=== PATIENT | male | born 1970 | race Caucasian/White ===

== ENCOUNTER → 2017-06-17 | Day surgery (SDC) | payer BC ==
[2017-05-15 13:39] VITALS: BP 143/74
[~2017-06-17] MED LIST: ADVIL 200MG TA200 MG PO; ASPIRIN 32325 MG/TAB PO; CLARITIN10 M1 PO; COUMADIN 77.5 MG/TAB PO; GLUCOSAMINE & C1 CA2 PO; HYDROCHLOROTHIA1 T14 PO; NATURE'S BLEND1 TA6 PO; NIFEDIPINE ER60 M2 PO; PREDNISONE10 MG PO; TOPROL XL100 MG PO; ZANTAC150 M1 PO
== END ==
LOC: MSO 08:25
DX: D64.9 Anemia, unspecified (principal); K63.5 Polyp of colon; I10 Essential (primary) hypertension; G47.33 Obstructive sleep apnea (adult) (pediatric); E66.01 Morbid (severe) obesity due to excess calories; I48.0 Paroxysmal atrial fibrillation; Z79.01 Long term (current) use of anticoagulants; Z68.44 Body mass index [BMI] 60.0-69.9, adult
CPT/HCPCS: 00810; J7120

== ENCOUNTER 2017-11-07 08:39 | Emergency (ER) | payer BC ==
[~2017-11-07] VITALS: Ht 185.4 cm; Wt 222.7 kg
[~2017-11-07 08:39] MED LIST changes: -HYDROCHLOROTHIA1 T14 PO; +HYDROCHLOROTHIA1 T15 PO; +NIFEDIPINE ER30 M3 PO; -NIFEDIPINE ER60 M2 PO
[2017-11-07] MEDS ORDERED: CLARITIN 1010 MG/TAB PO (09:02)
[2017-11-07] MEDS ORDERED: ADVIL 200MG TA200 MG PO (09:02)
[2017-11-07] MEDS ORDERED: [UNRECOGNIZED DRUG - OTHER] PO (09:03)
[2017-11-07 10:07] LABS: EOS # 0.2 (0.04-0.40); EOS % 2.3 % (0.0-4.0); HEMATOCRIT 42.2 % (42.0-52.0); HEMOGLOBIN 13.1 g/dL (13.5-18.0); LYMPH# 2.1 (1.50-4.00); MEAN CELL VOLUME 84 fl (78-100); MEAN CORPUSCULAR HEMOGLOBIN 26 pg (27-31); MEAN CORPUSCULAR HGB CONC 31 g/dL (33-37); MEAN PLATELET VOLUME 9.8 fl (7.4-10.4); MONO # 0.6 (0.20-0.80); NEU # 4.9 (1.40-6.50); PLATELET COUNT 267 K/mm3 (130-400); RED BLOOD COUNT 5.05 M/mm3 (4.20-5.60); RED CELL DISTRIBUTION WIDTH 14.4 % (11.5-14.5); WHITE BLOOD COUNT 7.8 K/mm3 (4.8-10.8)
[2017-11-07 10:25] LABS: PROTHROMBIN TIME 25.1 SECONDS (9.0-12.0)
[2017-11-07 10:33] LABS: ALBUMIN 4.1 g/dL (3.5-5.0); BUN/CREATININE RATIO 34.3 (6.0-26.0); CALCIUM 9.3 mg/dL (8.4-10.2); TOTAL BILIRUBIN 0.3 mg/dL (0.2-1.3)
[2017-11-07] MEDS ORDERED: LEXAPRO 10MG10 MG PO (11:57)
[2017-11-07] MEDS ORDERED: ATIVAN0.5 MG PO (11:57)
[2017-11-07 12:14] VITALS: BP 142/77
== END 2017-11-07 12:14 | disposition home or self-care (01) ==
LOC: ED 08:39
PROVIDERS: Physician Assistant
DX: F41.9 Anxiety disorder, unspecified (principal); R07.9 Chest pain, unspecified; R51 Headache; I48.91 Unspecified atrial fibrillation; I10 Essential (primary) hypertension; E66.01 Morbid (severe) obesity due to excess calories; G47.33 Obstructive sleep apnea (adult) (pediatric); Z88.8 Allergy status to other drugs, medicaments and biological substances; Z68.44 Body mass index [BMI] 60.0-69.9, adult; Z79.01 Long term (current) use of anticoagulants